=== PATIENT | male | born 1945 | race Hispanic/Latino ===

== ENCOUNTER 2017-01-31 08:33 | Emergency (ER) | payer MEDICARE, MEDICAID ==
[2017-01-31] MEDS ORDERED: Morphine 4 MG/ML VIAL ONE (08:58)
[2017-01-31 09:12] VITALS: BP 143/73; PULSE 75; RESP 16; TEMP 98.2; O2SAT 100
[2017-01-31] MEDS ORDERED: Morphine 4 MG/ML VIAL IV ONE (09:13)
--- NOTE | 2017-01-31 10:17 | C.PDOC ---
History Of Present Illness 71-year-old male, presents to the emergency department with complaints of painful left inguinal hernia. Patient states his hernia popped out and will not go back in. Patient is making arrangements with surgeon for evaluation. Denies any dysuria, hematuria, frequency or any other associated symptoms. No other complaints at this time. Time Seen by Provider: 01/31/17 08:50 Chief Complaint (Nursing): Male Genitourinary History Per: Patient History/Exam Limitations: no limitations Onset/Duration Of Symptoms: Days Current Symptoms Are (Timing): Still Present Severity: Moderate Past Medical History Reviewed: Historical Data, Nursing Documentation, Vital Signs Vital Signs: Last Vital Signs Temp 98.2 F 01/31/17 09:11 Pulse 75 01/31/17 09:11 Resp 16 01/31/17 09:11 BP 143/73 01/31/17 09:11 Pulse Ox 100 01/31/17 11:00 - Medical History PMH: Kidney Stones, Chronic Kidney Disease Family History: States: Unknown Family Hx - Social History Hx Tobacco Use: No Hx Alcohol Use: Yes Hx Substance Use: No Review Of Systems Except As Marked, All Systems Reviewed And Found Negative. Constitutional: Negative for: Fever Cardiovascular: Negative for: Chest Pain Respiratory: Negative for: Shortness of Breath Gastrointestinal: Positive for: Other (painful hernia). Negative for: Vomiting Skin: Negative for: Rash Neurological: Negative for: Weakness, Numbness Physical Exam - Physical Exam Appears: Non-toxic, No Acute Distress Skin: Warm, Dry, No Rash Head: Atraumatic, Normacephalic Chest: Symmetrical Cardiovascular: Rhythm Regular Respiratory: Normal Breath Sounds, No Rales, No Rhonchi Gastrointestinal/Abdominal: Soft, No Tenderness, No Guarding, No Rebound, Hernia (Left ingunal, (+) BS slignt tenderness) Male Genital: Normal Inspection Extremity: Normal ROM Neurological/Psych: Oriented x3, Normal Speech, Normal Cognition ED Course And Treatment O2 Sat by Pulse Oximetry: 100 Progress Note: Medicated for pain with morphine Medical Decision Making Medical Decision Making: Pt placed in trendelenberg post medication hernia self reduced Post reduction pain resolved abd continued soft non tender adised PCP for surgical referral Disposition Counseled Patient/Family Regarding: Diagnosis, Need For Followup - Disposition Disposition: HOME/ ROUTINE Disposition Time: 10:15 Condition: GOOD Additional Instructions: Please refer pt to general surgeon for hernia repair before this becomes emergent Instructions: Inguinal Hernia (ED) - Clinical Impression Clinical Impression: Left inguinal hernia - Scribe Statement Sherlyn Leggett All medical record entries made by the Arielibjenny were at my direction and personally dictated by me. I have reviewed the chart and agree that the record accurately reflects my personal performance of the history, physical exam, medical decision making, and the department course for this patient. I have also personally directed, reviewed, and agree with the discharge instructions and disposition.
== END 2017-01-31 10:25 | disposition home or self-care (01) ==
LOC: C.ER 08:33
DX: K40.90 Unilateral inguinal hernia, without obstruction or gangrene, not specified as recurrent (principal)
CPT/HCPCS: 96374; 99284; J2270

== ENCOUNTER 2017-02-01 23:42 | Emergency (ER) | payer MEDICARE, MEDICAID ==
--- NOTE | 2017-02-02 00:41 | C.PDOC ---
History Of Present Illness Patient presents to the ED complaining of left inguinal area pain since earlier today. Patient was seen here yesterday for a left inguinal hernia. It was reduced and he was discharged home. The pain returned today after he bent down to tie his shoe laces. Patient denies fever, chills, nausea, or vomiting. Time Seen by Provider: 02/02/17 00:40 Chief Complaint (Nursing): Abdominal Pain History Per: Patient History/Exam Limitations: no limitations Onset/Duration Of Symptoms: Worse Since (today) Current Symptoms Are (Timing): Still Present Context: Other Severity: Mild Pain Scale Rating Of: 3 Location Of Pain/Discomfort: Other (left inguinal area) Radiation Of Pain To:: None Quality Of Discomfort: Sharp, "Pain" Associated Symptoms: denies: Fever, Chills Exacerbating Factors: None Alleviating Factors: None Last Bowel Movement: Today Recent travel outside of the [place]: No Additional History Per: Patient, Prior Records Past Medical History Reviewed: Historical Data, Nursing Documentation, Vital Signs Vital Signs: Last Vital Signs Temp 97.5 F L 02/01/17 23:48 Pulse 88 02/01/17 23:48 Resp 16 02/01/17 23:48 BP 186/77 H 02/01/17 23:48 Pulse Ox 100 02/02/17 01:28 - Medical History PMH: Kidney Stones, Chronic Kidney Disease Family History: States: Unknown Family Hx - Social History Hx Tobacco Use: No Hx Alcohol Use: Yes Hx Substance Use: No - Immunization History Hx Tetanus Toxoid Vaccination: No Hx Influenza Vaccination: No Hx Pneumococcal Vaccination: No Review Of Systems Constitutional: Negative for: Fever, Chills Gastrointestinal: Negative for: Nausea, Vomiting Genitourinary: Positive for: Other (left inguinal pain) Physical Exam - Physical Exam Appears: Non-toxic, No Acute Distress Skin: Warm, Dry Head: Normacephalic Oral Mucosa: Moist Neck: Supple Chest: Symmetrical Cardiovascular: Rhythm Regular Respiratory: No Rales, No Rhonchi, No Wheezing Gastrointestinal/Abdominal: Soft, No Tenderness, No Distention Back: No CVA Tenderness Male Genital: No Testicular Tenderness, No Testicular Swelling, Inguinal Tenderness (left), No Inguinal Swelling, No Scrotal Swelling, Other (large reducible inguinal hernia) Extremity: Normal ROM Extremity: Bilateral: Atraumatic, Normal Color And Temperature Neurological/Psych: Oriented x3, Normal Speech, Normal Cognition Gait: Steady ED Course And Treatment - Laboratory Results Result Diagrams: 02/02/17 00:48 02/02/17 00:48 O2 Sat by Pulse Oximetry: 100 (room air) Pulse Ox Interpretation: Normal Progress Note: Plan: Abdomen/Pelvis CT with contrast, Labs, Iohexol Reevaluation Time: 03:46 Reassessment Condition: Improved Medical Decision Making Medical Decision Making: Patient now states that he is scheduled [place] [address] [facility] [place] is now pain free. Disposition Counseled Patient/Family Regarding: Studies Performed, Diagnosis, Need For Followup - Disposition Disposition: HOME/ ROUTINE Disposition Time: 00:41 Condition: FAIR Instructions: Inguinal Hernia (DC) - Clinical Impression Clinical Impression: Left inguinal hernia - Scribe Statement The provider has reviewed the documentation as recorded by the Arielibjenny Cruz Provider Attestation: All medical record entries made by the Arielibe were at my direction and personally dictated by me. I have reviewed the chart and agree that the record accurately reflects my personal performance of the history, physical exam, medical decision making, and the department course for this patient. I have also personally directed, reviewed, and agree with the discharge instructions and disposition.
[2017-02-02] MEDS ORDERED: Iohexol 240 (50 ml) PO STA (00:42)
[2017-02-02 00:58] LABS: BASO % 0.6 % (0.0-2.0); EOS % 0.5 % (0.0-4.0); HEMATOCRIT 32.4 % (35.0-51.0); LYMPH # 1.1 K/uL (1.0-4.3); LYMPH % 15.8 % (20.0-40.0); MEAN CELL VOLUME 77.5 fL (80.0-94.0); MEAN CORPUSCULAR HEMOGLOBIN 25.3 pg (27.0-31.0); MEAN CORPUSCULAR HGB CONC 32.6 g/dL (33.0-37.0); MEAN PLATELET VOLUME 9.2 fL (7.2-11.7); MONO # 0.6 K/uL (0.0-0.8); NRBC % 0.1 % (0.0-2.0); RED CELL DISTRIBUTION WIDTH 16.7 % (11.5-14.5); WHITE BLOOD COUNT 7.1 K/uL (4.8-10.8)
[2017-02-02] MEDS ORDERED: Iohexol 240 (50 ml) ONE (00:58)
[2017-02-02 01:10] LABS: CHLORIDE 102 mmol/L (98-107); SODIUM 137 mmol/L (132-148)
[2017-02-02 01:11] LABS: POTASSIUM 3.7 mmol/L (3.6-5.2)
[2017-02-02 01:13] LABS: ALB/GLOB RATIO 1.3 (1.0-2.1); ALKALINE PHOSPHATASE 80 U/L (38-126); AST/SGOT 20 U/L (17-59); BILIRUBIN,TOTAL 0.7 mg/dL (0.2-1.3); BLOOD UREA NITROGEN 20 mg/dL (9-20); CARBON DIOXIDE 26 mmol/L (22-30); GFR AFRICAN-AMERICAN > 60; TOTAL PROTEIN 7.7 g/dL (6.3-8.3)
[2017-02-02 01:14] LABS: ALT/SGPT 21 U/L (21-72); CALCIUM 9.2 mg/dl (8.6-10.4); GLUCOSE,RANDOM 108 mg/dL (75-110)
[2017-02-02] MEDS ORDERED: Iohexol 350mg/ml 100 ML ONE (02:40)
--- NOTE | 2017-02-02 03:33 | CT ---
EXAM: CT Abdomen and Pelvis With Intravenous Contrast CLINICAL HISTORY: 71 years old, male; Pain; Abdominal pain; Patient HX: Us 10-24-16; Additional info: Abd pain and ho. Hernia TECHNIQUE: Axial computed tomography images of the abdomen and pelvis with intravenous contrast. This CT exam was performed using one or more of the following dose reduction techniques: automated exposure control, adjustment of the mA and/or kV according to patient size, and/or use of iterative reconstruction technique. Coronal and sagittal reformatted images were created and reviewed. CONTRAST: 100 mL of [id number] administered intravenously. COMPARISON: No relevant prior studies available. FINDINGS: Lower thorax: The bilateral lung bases are clear. ABDOMEN: Liver: No acute findings. Gallbladder and bile ducts: The gallbladder is decompressed. No calcified stones. No significant intra- or extrahepatic biliary ductal dilation. Pancreas: Enhances homogeneously. No ductal dilation. No discrete mass. Spleen: No acute findings. Adrenals: No acute findings. Kidneys and ureters: No acute findings. No hydronephrosis or renal calculi. No discrete solid mass. A focus of decreased attenuation is identified within the right kidney, and statistically representing a cyst. PELVIS: Bladder: A left inguinal hernia is identified, containing portions of the bladder. Reproductive: No acute findings. Appendix: The air filled appendix is of normal caliber (series 2, image 16). ABDOMEN and PELVIS: Stomach and bowel: No obstruction. Trace diffuse mucosal thickening within the colon, with scattered diverticulum.Small bowel wall thickening but no surrounding inflammation or fluid to confirm an acute enteritis. Peritoneum: No significant fluid collection. No free air. Lymph nodes: No pathologically enlarged lymph nodes. Vasculature: Unremarkable. Bones: No acute fracture. IMPRESSION: Mural thickening within multiple loops of small bowel, without surrounding inflammation to confirm enteritis. Bladder containing left inguinal hernia. Additional nonacute findings, as detailed above.
[2017-02-02 04:04] VITALS: BP 126/78; PULSE 88; RESP 16; TEMP 98.2; O2SAT 98
== END 2017-02-02 03:58 | disposition home or self-care (01) ==
LOC: C.ER 23:42
DX: K40.90 Unilateral inguinal hernia, without obstruction or gangrene, not specified as recurrent (principal)
CPT/HCPCS: 74177; 80053; 85025; 99284; Q9966; Q9967